=== PATIENT | female | born 1960 | race Caucasian/White ===

== ENCOUNTER 2017-07-28 14:00 | Emergency (ER) | payer MEDICAID, OTHER ==
[~2017-07-28] VITALS: Ht 165.1 cm; Wt 95.5 kg
[~2017-07-28 14:00] MED LIST: AMIT50TA3 PO; ASPI-1265 PO; BACL20TA PO; CITA20TA11 PO; DICL-194 PO; DOCU250C86 PO; FIBER PILL PO; GABA100C PO; HYDR-3965 PO; LACT1CAP67 PO; LISI-222 PO; LOP25T PO; METF500T PO; NATURAL LAXATIVE PO; OMEG500C PO; OXYB5TAB11 PO; PANT-47 PO; SITA100T11 PO
[2017-07-28] MEDS ORDERED: normal saline 1000ML IV soln IVB ONE ×2 (15:10)
[2017-07-28] MEDS ORDERED: ketorolac trometh. 30mg/ml inj. IV ONE (15:10)
[2017-07-28] MEDS ORDERED: morphine 4 MG/ML inj SYRINge IV ONE (15:10)
[2017-07-28] MEDS ORDERED: metoclopramide 5 mg/ml inj IV ONE (15:10)
[2017-07-28] MEDS ORDERED: diphenhydrAMINE 50 mg/ml inj IV ONE (15:10)
[2017-07-28] MEDS ORDERED: oxyCODONE/APAP 10/325mg tablet PO ONE (15:15)
[2017-07-28] MEDS ORDERED: diazepam 5mg tablet PO ONE (15:15)
[2017-07-28 15:32] LABS: BASOPHILS % (AUTO) 0.2 % (0-1); EOSINOPHILS % (AUTO) 0 % (0-6); HEMATOCRIT 37.5 % (35.0-45.0); HEMOGLOBIN 12.7 g/dl (12.0-16.0); LYMPHOCYTES # (AUTO) 1.3 X10'3 (1.1-4.8); LYMPHOCYTES % (AUTO) 14.6 % (21-51); MEAN CORPUSCULAR HGB CONC 33.8 % (33.0-36.5); MEAN CORPUSCULAR VOLUME 88.8 FL (78-98); MEAN PLATELET VOLUME 8.4 FL (7.4-10.4); MONOCYTES # (AUTO) 0.1 X10'3 (0-0.9); NEUTROPHILS # (AUTO) 7.5 X10'3 (1.8-7.7); NEUTROPHILS % (AUTO) 84.2 % (42-75); PLATELET COUNT 346 X10'3 (140-440); RED BLOOD COUNT 4.23 X10'6 (4.20-5.60); RED CELL DISTRIBUTION WIDTH 14.2 % (11.5-14.5); WHITE BLOOD COUNT 8.9 X10'3 (4.5-11.0)
[2017-07-28] MEDS ORDERED: HYDROcodone/acetaminophen 10/325mg tab PO ONE (15:35)
[2017-07-28 15:39] LABS: INR 1.1 INR
[2017-07-28 15:52] LABS: ALANINE AMINOTRANSFERASE 41 U/L (12-78); ALBUMIN 4.2 G/DL (3.4-5.0); ALBUMIN/GLOBULIN RATIO 0.9 (1.1-1.5); ALKALINE PHOSPHATASE 50 IU/L (46-116); ANION GAP 10 (8-16); ASPARTATE AMINO TRANSFERASE 31 U/L (10-37); BILIRUBIN,TOTAL 0.2 MG/DL (0.1-1.0); BLOOD UREA NITROGEN 20 MG/DL (7-18); BUN/CREATININE RATIO 17.7 (6.6-38.0); CALCIUM 9.5 MG/DL (8.5-10.1); CHLORIDE 106 MMOL/L (99-107); CREATININE 1.13 MG/DL (0.40-0.90); GLUCOSE 139 MG/DL (70-104); MAGNESIUM 1.8 MG/DL (1.5-2.4); POTASSIUM 4.4 MMOL/L (3.5-5.1); SODIUM 141 MMOL/L (135-145); TOTAL PROTEIN 8.7 G/DL (6.4-8.2); eGFR 50 ML/MIN
[2017-07-28 17:11] VITALS: BP 152/78
== END 2017-07-28 17:15 | disposition home or self-care (01) ==
LOC: ER 14:00
DX: R07.89 Other chest pain (principal); I25.10 Atherosclerotic heart disease of native coronary artery without angina pectoris; I10 Essential (primary) hypertension; I25.2 Old myocardial infarction; Z95.1 Presence of aortocoronary bypass graft; F17.200 Nicotine dependence, unspecified, uncomplicated; Z88.6 Allergy status to analgesic agent; Z79.82 Long term (current) use of aspirin
CPT/HCPCS: 36415; 71045; 80053; 83735; 83880; 84484; 85025; 85610; 99285

== ENCOUNTER 2018-07-21 05:30 | Day surgery (SDC) | payer MEDICAID ==
[2018-07-19 16:37] LABS: BASOPHILS # (AUTO) 0.1 X10'3 (0-0.2); BASOPHILS % (AUTO) 0.9 % (0-1); EOSINOPHILS # (AUTO) 0.3 X10'3 (0-0.9); EOSINOPHILS % (AUTO) 2.8 % (0-6); LYMPHOCYTES # (AUTO) 3.3 X10'3 (1.1-4.8); LYMPHOCYTES % (AUTO) 33.8 % (21-51); MEAN CORPUSCULAR HGB CONC 33.3 g/dL (33.0-36.5); MEAN PLATELET VOLUME 8.7 FL (7.4-10.4); MONOCYTES % (AUTO) 10.1 % (2-12); NEUTROPHILS # (AUTO) 5.1 X10'3 (1.8-7.7); NEUTROPHILS % (AUTO) 52.4 % (42-75); PRE OP HEMATOCRIT 37.2 % (35.0-45.0); PRE OP HEMOGLOBIN 12.4 g/dL (12.0-16.0); PRE OP PLATELET COUNT 344 X10'3 (140-440); RED BLOOD COUNT 4.14 X10'6 (4.20-5.60); RED CELL DISTRIBUTION WIDTH 13.7 % (11.5-14.5)
[2018-07-19 16:53] LABS: ALBUMIN 3.9 G/DL (3.4-5.0); ALKALINE PHOSPHATASE 45 IU/L (46-116); BLOOD UREA NITROGEN 17 MG/DL (7-18); BUN/CREATININE RATIO 13.8 (6.6-38.0); CALCIUM 9.5 MG/DL (8.5-10.1); CHLORIDE 106 MMOL/L (99-107); CREATININE 1.23 MG/DL (0.40-0.90); PRE OP ALT 38 U/L (30-65); PRE OP ANION GAP 8 (8-16); PRE OP AST 30 U/L (10-37); PRE OP BILIRUB, TOTAL 0.2 MG/DL (0.0-1.0); PRE OP GLUCOSE 102 MG/DL (70-104); PRE OP POTASSIUM 3.8 MMOL/L (3.4-5.1); PRE OP SODIUM 143 MMOL/L (135-145); TOTAL CARBON DIOXIDE 28.8 MMOL/L (24-32); TOTAL PROTEIN 7.7 G/DL (6.4-8.2); eGFR 45 ML/MIN
[2018-07-21] VITALS (10 sets, daily range): BP systolic 105–153; BP diastolic 57–84
[~2018-07-21] VITALS: Ht 162.6 cm; Wt 97.0 kg
[~2018-07-21 05:30] MED LIST changes: +ALBU8.5H8 INH; +ARIP5TAB4 PO; +ATOR40TA PO; +BIOT10005 PO; -CITA20TA11 PO; +CITA20TA28 PO; -DICL-194 PO; +DIPH25CA83 PO; +DOCUMENT DATE & TIME OF BETA-BLOCKER PO ONE; +FENO200C PO; +FERR325T28 PO; -FIBER PILL PO; +FLUT16SP2 BOTHNARES; -LISI-222 PO; +LOSA25TA96 PO; -METF500T PO; +MULT-1133 PO; -NATURAL LAXATIVE PO; +ONDA8TAB6 PO; +ORLI60CA2 PO; -PANT-47 PO; -SITA100T11 PO; +VANCOMYCIN INJ 1000 MG in NORMAL SALINE 250ml IV.SOLN IV ONE; +ceFAZolin 2gm in dextrose, iso 100 ML IV ONE; +famotidine 20mg tablet PO ONE; +ringers solution, lacted 1,000 ML IV SCH
[2018-07-21] MEDS ORDERED: LIDOcaine 1% (10mg/ml) 2ml vial ONE (06:57)
[2018-07-21] MEDS ORDERED: famotidine 20mg tablet PO ONE (07:40)
[2018-07-21] MEDS ORDERED: BUPIVAcaine/PF 2.5mg/ml (0.25%) 10ml vial ONE (10:46)
[2018-07-21] MEDS ORDERED: sevoflurane 250ml liquid IH ONE (11:46)
[2018-07-21] MEDS ORDERED: fentaNYL/PF 50MCG/1 ML 2ML syringe ONE (11:47)
[2018-07-21] MEDS ORDERED: MIDAZolam 5mg/5ml vial ONE (11:47)
[2018-07-21] MEDS ORDERED: propofol inj 20 ML IV ONE (11:47)
[2018-07-21] MEDS ORDERED: ROPIVAcaine 0.5% (5mg/ml) 30ml vial ONE (11:51)
[2018-07-21] MEDS ORDERED: ringers solution, lacted 1,000 ML IV SCH (12:52)
[2018-07-21] MEDS ORDERED: morphine 4 MG/ML inj SYRINge IV PRN ×2 (12:55)
[2018-07-21] MEDS ORDERED: ondansetron/PF 4mg/2ml inj IV PRN (12:55)
[2018-07-21] MEDS ORDERED: BUPIVAcaine/PF 2.5mg/ml (0.25%) 10ml vial IJ ONE (12:55)
[2018-07-21] MEDS ORDERED: meperidine/PF 25mg/ml syringe IV PRN ×3 (12:55)
[2018-07-21] MEDS ORDERED: proCHLORperazine 10 MG/2 ml inj IV PRN (12:55)
[2018-07-21] MEDS ORDERED: HYDROcodone/acetaminophen 10/325mg tab PO PRN (13:25)
--- NOTE | 2018-07-21 13:31 | NUR ---
Received from OR via , accompanied by Anesthesiologist DR HOWELL and report given by Anesthesiolgist. AWAKENS TO VOICE. VITALS STABLE. DRESSING DI. TERRY PAIN. LUE IN SIMPLE SLING. LT HAND WARM AND PINK.
--- NOTE | 2018-07-21 14:51 | NUR ---
AWAKE AND ORIENTED. VITALS STABLE. DRESSING DI. STATES MINIMAL DISCOMFORT. HOME WITH SPOUSE AT THIS TIME.
== END 2018-07-21 14:51 | disposition home or self-care (01) ==
LOC: PAS 05:30
PROVIDERS: ATTEND Orthopaedic Surgery
DX: M75.42 Impingement syndrome of left shoulder (principal); M19.012 Primary osteoarthritis, left shoulder; M11.212 Other chondrocalcinosis, left shoulder; M25.712 Osteophyte, left shoulder; M75.51 Bursitis of right shoulder; I10 Essential (primary) hypertension; I25.2 Old myocardial infarction; J45.909 Unspecified asthma, uncomplicated; M75.82 Other shoulder lesions, left shoulder; Z98.890 Other specified postprocedural states; Z79.899 Other long term (current) drug therapy; Z95.5 Presence of coronary angioplasty implant and graft; Z87.891 Personal history of nicotine dependence
CPT/HCPCS: 29824; 29826; 36415; 80053; 82948; 85025; A6449; J0690; J2175; J2250; J2405; J2704; J3010; J3370; J3490; J7120; A4565; A7000; J2795; J7030

== ENCOUNTER 2020-11-27 06:54 | Day surgery (SDC) | payer MEDICAID ==
[2020-11-19 11:30] LABS: BASOPHILS # (AUTO) 0.1 X10'3 (0-0.2); EOSINOPHILS # (AUTO) 0.1 X10'3 (0-0.9); EOSINOPHILS % (AUTO) 1.5 % (0-6); LYMPHOCYTES # (AUTO) 3.2 X10'3 (1.1-4.8); LYMPHOCYTES % (AUTO) 41.1 % (21-51); MEAN CORPUSCULAR HEMOGLOBIN 28.3 PG (27.0-31.0); MEAN CORPUSCULAR VOLUME 85.9 FL (78-98); MEAN PLATELET VOLUME 8.8 FL (7.4-10.4); MONOCYTES # (AUTO) 0.7 X10'3 (0-0.9); MONOCYTES % (AUTO) 9.3 % (2-12); NEUTROPHILS # (AUTO) 3.7 X10'3 (1.8-7.7); NEUTROPHILS % (AUTO) 47.1 % (42-75); PRE OP HEMOGLOBIN 12.9 g/dL (12.0-16.0); PRE OP PLATELET COUNT 301 X10'3 (140-440); RED BLOOD COUNT 4.54 X10'6 (4.20-5.60); RED CELL DISTRIBUTION WIDTH 14.3 % (11.5-14.5)
[2020-11-19 11:48] LABS: ALBUMIN 3.9 G/DL (3.4-5.0); ALKALINE PHOSPHATASE 39 IU/L (46-116); BLOOD UREA NITROGEN 18 MG/DL (7-18); BUN/CREATININE RATIO 16.2 (6.6-38.0); CALCIUM 8.9 MG/DL (8.5-10.1); CHLORIDE 106 MMOL/L (99-107); CREATININE 1.11 MG/DL (0.40-0.90); PRE OP ALT 29 U/L (30-65); PRE OP ANION GAP 5 (8-16); PRE OP AST 18 U/L (10-37); PRE OP BILIRUB, TOTAL 0.2 MG/DL (0.0-1.0); PRE OP GLUCOSE 86 MG/DL (70-104); PRE OP POTASSIUM 4.5 MMOL/L (3.4-5.1); PRE OP SODIUM 141 MMOL/L (135-145); TOTAL CARBON DIOXIDE 29.9 MMOL/L (24-32); TOTAL PROTEIN 7.9 G/DL (6.4-8.2); eGFR 50 ML/MIN
[~2020-11-27] VITALS: Ht 165.1 cm; Wt 108.0 kg
[2020-11-27] VITALS (8 sets, daily range): BP systolic 123–176; BP diastolic 56–75
[~2020-11-27 06:54] MED LIST changes: -AMIT50TA3 PO; +ARIP5TAB14 PO; -ARIP5TAB4 PO; -ATOR40TA PO; -DOCU250C86 PO; -DOCUMENT DATE & TIME OF BETA-BLOCKER PO ONE; -FERR325T28 PO; -GABA100C PO; -LACT1CAP67 PO; +LACT1CAP77 PO; -LOP25T PO; +LYR75C PO; +MULT-1085 PO; -MULT-1133 PO; -OXYB5TAB11 PO; +PANT-47 PO; +ROSU40TA PO; +TYL650S PO; -VANCOMYCIN INJ 1000 MG in NORMAL SALINE 250ml IV.SOLN IV ONE; +albuterol 2.5 MG/3 ML nebule NEB PRN; -ceFAZolin 2gm in dextrose, iso 100 ML IV ONE; +cefazolin/dext.iso 2gm/100ml IV ONE; +vancomycin 1,500 MG in NS 300ml IV soln IV ONE
[2020-11-27] MEDS ORDERED: triamcinolone acetonide 40mg/ml inj ONE (09:21)
[2020-11-27] MEDS ORDERED: BUPIVAcaine/PF 2.5 mg/ml (0.25%) 30ml vial ONE (09:21)
[2020-11-27] MEDS ORDERED: ondansetron/PF 4mg/2ml inj IV STA (09:35)
[2020-11-27] MEDS ORDERED: sevoflurane 250ml liquid IH ONE (09:55)
[2020-11-27] MEDS ORDERED: fentaNYL/PF 50MCG/1 ML 2ML syringe ONE (09:59)
[2020-11-27] MEDS ORDERED: midazolam 1 mg/ML 2ml injection ONE (10:00)
[2020-11-27] MEDS ORDERED: LIDOcaine 2% (20mg/ml) 5ml vial ONE (10:06)
[2020-11-27] MEDS ORDERED: propofol inj 20 ML IV ONE (10:06)
[2020-11-27] MEDS ORDERED: dexamethasone sod phosphate 4mg/ml inj. ONE (10:20)
[2020-11-27] MEDS ORDERED: ondansetron/PF 4mg/2ml inj ONE (10:20)
--- NOTE | 2020-11-27 11:16 | NUR ---
Received from OR via , accompanied by Anesthesiologist DR TAI and report given by Anesthesiolgist. AWAKENS TO VOICE. VITALS STABLE. DRESSING DI. TERRY PAIN.
--- NOTE | 2020-11-27 12:26 | NUR ---
AWAKE AND ORIENTED. VITALS STABLE. DRESSING DI. TERRY PAIN. HOME WITH HER SPOUSE AT THIS TIME.
== END 2020-11-27 12:26 | disposition home or self-care (01) ==
LOC: PAS 06:54
PROVIDERS: ATTEND Orthopaedic Surgery
DX: S83.231A Complex tear of medial meniscus, current injury, right knee, initial encounter (principal); S83.281A Other tear of lateral meniscus, current injury, right knee, initial encounter; M94.261 Chondromalacia, right knee; M17.0 Bilateral primary osteoarthritis of knee; I25.10 Atherosclerotic heart disease of native coronary artery without angina pectoris; F41.9 Anxiety disorder, unspecified; J45.909 Unspecified asthma, uncomplicated; G89.4 Chronic pain syndrome; F32.9 Major depressive disorder, single episode, unspecified; I10 Essential (primary) hypertension; E78.5 Hyperlipidemia, unspecified; E66.01 Morbid (severe) obesity due to excess calories; Z68.39 Body mass index [BMI] 39.0-39.9, adult; M19.012 Primary osteoarthritis, left shoulder; E11.51 Type 2 diabetes mellitus with diabetic peripheral angiopathy without gangrene; I25.2 Old myocardial infarction; G47.33 Obstructive sleep apnea (adult) (pediatric); K21.9 Gastro-esophageal reflux disease without esophagitis; Z88.8 Allergy status to other drugs, medicaments and biological substances; Z79.899 Other long term (current) drug therapy; Z79.82 Long term (current) use of aspirin; Z88.5 Allergy status to narcotic agent; Z86.73 Personal history of transient ischemic attack (TIA), and cerebral infarction without residual deficits; Z98.890 Other specified postprocedural states; Z90.49 Acquired absence of other specified parts of digestive tract; Z87.891 Personal history of nicotine dependence; X58.XXXA Exposure to other specified factors, initial encounter; Y93.89 Activity, other specified; Y92.89 Other specified places as the place of occurrence of the external cause; Y99.8 Other external cause status
CPT/HCPCS: 29873; 29879; 29880; 36415; 71046; 80053; 82948; 85025; 93005; J1100; J2001; J2250; J2405; J2704; J3010; J3301; J3370; J3490; J7040; Z7506; Z7508; Z7512; A4215; A4618; A6250; A6449; A7000; J7120

== ENCOUNTER 2021-01-06 12:29 | Day surgery (SDC) | payer MEDICAID ==
[2020-12-30 09:36] LABS: BASOPHILS # (AUTO) 0.1 X10'3 (0-0.2); BASOPHILS % (AUTO) 0.8 % (0-1); EOSINOPHILS # (AUTO) 0.1 X10'3 (0-0.9); EOSINOPHILS % (AUTO) 1.7 % (0-6); HEMATOCRIT 38.5 % (35.0-45.0); HEMOGLOBIN 12.5 g/dl (12.0-16.0); LYMPHOCYTES # (AUTO) 3.2 X10'3 (1.1-4.8); LYMPHOCYTES % (AUTO) 38.4 % (21-51); MEAN CORPUSCULAR HEMOGLOBIN 28.4 PG (27.0-31.0); MEAN CORPUSCULAR HGB CONC 32.4 g/dL (33.0-36.5); MEAN CORPUSCULAR VOLUME 87.6 FL (78-98); MEAN PLATELET VOLUME 8.8 FL (7.4-10.4); MONOCYTES # (AUTO) 0.8 X10'3 (0-0.9); NEUTROPHILS # (AUTO) 4.2 X10'3 (1.8-7.7); NEUTROPHILS % (AUTO) 50.1 % (42-75); PLATELET COUNT 320 X10'3 (140-440); RED BLOOD COUNT 4.39 X10'6 (4.20-5.60); RED CELL DISTRIBUTION WIDTH 14.8 % (11.5-14.5); WHITE BLOOD COUNT 8.3 X10'3 (4.5-11.0)
[2020-12-30 09:45] LABS: ALBUMIN 3.8 G/DL (3.4-5.0); ANION GAP 9 (8-16); BLOOD UREA NITROGEN 15 MG/DL (7-18); BUN/CREATININE RATIO 15.2 (6.6-38.0); CALCIUM 8.7 MG/DL (8.5-10.1); CHLORIDE 108 MMOL/L (99-107); CREATININE 0.99 MG/DL (0.40-0.90); GLUCOSE 93 MG/DL (70-104); POTASSIUM 4.1 MMOL/L (3.5-5.1); SODIUM 143 MMOL/L (135-145); TOTAL CARBON DIOXIDE 26.4 MMOL/L (24-32); eGFR 58 ML/MIN
[2020-12-30 09:48] LABS: PARTIAL THROMBOPLASTIN TIME 24 SECONDS (22-32)
[~2021-01-06] VITALS: Ht 165.1 cm; Wt 109.3 kg
[2021-01-06] VITALS (9 sets, daily range): BP systolic 91–150; BP diastolic 48–69
[~2021-01-06 12:29] MED LIST changes: +ALBU8.5H17 INH; -ALBU8.5H8 INH; -albuterol 2.5 MG/3 ML nebule NEB PRN; -cefazolin/dext.iso 2gm/100ml IV ONE; -famotidine 20mg tablet PO ONE; -ringers solution, lacted 1,000 ML IV SCH; -vancomycin 1,500 MG in NS 300ml IV soln IV ONE
[2021-01-06] MEDS ORDERED: diphenhydrAMINE 25mg capsule PO PRN (12:55)
[2021-01-06] MEDS ORDERED: normal saline 1,000 ML IV SCH (12:55)
[2021-01-06] MEDS ORDERED: LORazepam 0.5 MG tablet PO PRN (12:55)
[2021-01-06] MEDS ORDERED: DIPH-1055 PO (14:47)
[2021-01-06] MEDS ORDERED: midazolam 1 mg/ML 2ml injection ONE (15:41)
[2021-01-06] MEDS ORDERED: fentaNYL/PF 50MCG/1 ML 2ML syringe ONE (15:41)
[2021-01-06] MEDS ORDERED: heparin 1,000unit/ml 10ml vial 10 ML ONE (15:41)
[2021-01-06] MEDS ORDERED: LIDOcaine 1% (10mg/ml)w/preservative injection 20ml MDV ONE ×2 (15:41→16:12)
[2021-01-06] MEDS ORDERED: heparin 1,000 UNITS/NS 500ml 500 ML ONE (15:41)
[2021-01-06] MEDS ORDERED: HYDROmorphone 1 mg/ml syringe ONE (15:59)
[2021-01-06] MEDS ORDERED: iohexol 350MG/ML 100ml bottle IV ONE (16:06)
[2021-01-06] MEDS ORDERED: clopidogrel 300mg tablet ONE (16:25)
[2021-01-06] MEDS ORDERED: ondansetron/PF 4mg/2ml inj IV PRN (17:25)
[2021-01-06] MEDS ORDERED: HYDROcodone/acetaminophen 10/325mg tab PO PRN (17:30)
[2021-01-06] MEDS ORDERED: HYDROcodone/acetaminophen 5mg/325mg tablet PO PRN (17:30)
[2021-01-06] MEDS ORDERED: OXAZEpam 15mg capsule PO PRN (17:30)
[2021-01-06] MEDS ORDERED: proCHLORperazine 10 MG/2 ml inj IV PRN (17:30)
== END 2021-01-06 19:10 | disposition home or self-care (01) ==
LOC: SSTAY O 12:29
PROVIDERS: ATTEND Internal Medicine Interventional Cardiology
DX: I70.211 Atherosclerosis of native arteries of extremities with intermittent claudication, right leg (principal); I25.10 Atherosclerotic heart disease of native coronary artery without angina pectoris; G47.33 Obstructive sleep apnea (adult) (pediatric); J45.909 Unspecified asthma, uncomplicated; F31.9 Bipolar disorder, unspecified; G89.29 Other chronic pain; D64.9 Anemia, unspecified; I65.29 Occlusion and stenosis of unspecified carotid artery; Z86.73 Personal history of transient ischemic attack (TIA), and cerebral infarction without residual deficits; Z79.82 Long term (current) use of aspirin; Z79.01 Long term (current) use of anticoagulants; Z79.899 Other long term (current) drug therapy; Z88.5 Allergy status to narcotic agent
CPT/HCPCS: 36415; 37221; 75625; 75710; 80048; 82948; 85025; 85610; 85730; 93005; 99152; C1760; C1769; C1876; C1894; J1170; J1644; J2001; J2250; J3010; Q9967; 99153; A6258

== ENCOUNTER 2022-07-12 07:02 | Inpatient (IN) | payer MEDICAID ==
[2022-07-07 10:48] LABS: BASOPHILS % (AUTO) 0.6 % (0-1); EOSINOPHILS # (AUTO) 0.1 X10'3 (0-0.9); EOSINOPHILS % (AUTO) 1.3 % (0-6); LYMPHOCYTES # (AUTO) 3.1 X10'3 (1.1-4.8); LYMPHOCYTES % (AUTO) 42.6 % (21-51); MEAN CORPUSCULAR HEMOGLOBIN 28.8 PG (27.0-31.0); MEAN CORPUSCULAR HGB CONC 32.3 g/dL (33.0-36.5); MEAN PLATELET VOLUME 8.8 FL (7.4-10.4); MONOCYTES # (AUTO) 0.6 X10'3 (0-0.9); NEUTROPHILS # (AUTO) 3.5 X10'3 (1.8-7.7); NEUTROPHILS % (AUTO) 47.5 % (42-75); PRE OP HEMATOCRIT 37.3 % (35.0-45.0); PRE OP HEMOGLOBIN 12.1 g/dL (12.0-16.0); PRE OP PLATELET COUNT 319 X10'3 (140-440); RED BLOOD COUNT 4.19 X10'6 (4.20-5.60); RED CELL DISTRIBUTION WIDTH 14.3 % (11.5-14.5)
[2022-07-07 10:57] LABS: ALBUMIN 3.8 G/DL (3.4-5.0); ALKALINE PHOSPHATASE 38 IU/L (46-116); BLOOD UREA NITROGEN 16 MG/DL (7-18); BUN/CREATININE RATIO 17.2 (6.6-38.0); CALCIUM 8.9 MG/DL (8.5-10.1); CHLORIDE 107 MMOL/L (99-107); CREATININE 0.93 MG/DL (0.40-0.90); PRE OP ALT 37 U/L (30-65); PRE OP ANION GAP 8 (8-16); PRE OP AST 36 U/L (10-37); PRE OP BILIRUB, TOTAL 0.2 MG/DL (0.0-1.0); PRE OP GLUCOSE 87 MG/DL (70-104); PRE OP POTASSIUM 4.2 MMOL/L (3.4-5.1); PRE OP SODIUM 141 MMOL/L (135-145); TOTAL CARBON DIOXIDE 25.6 MMOL/L (24-32); TOTAL PROTEIN 7.7 G/DL (6.4-8.2); eGFR 62 ML/MIN
[~2022-07-12] VITALS: Ht 165.1 cm; Wt 99.8 kg
[2022-07-12] VITALS (40 sets, daily range): BP systolic 123–159; BP diastolic 48–75
[~2022-07-12 07:02] MED LIST changes: +ACET650T24 PO; -ASPI-1265 PO; +ASPI-611 PO; +DIPH-1055 PO; -DIPH25CA83 PO; -FENO200C PO; +FENO200C22 PO; -FLUT16SP2 BOTHNARES; +FLUT16SP26 BOTHNARES; -ORLI60CA2 PO; +POLY119P2 PO; -ROSU40TA PO; +ROSU40TA22 PO; +SEMA1PEN3 SQ; -TYL650S PO; +cefazolin 2gm/D5W 100mL 100 ML IV ONE; +famotidine 20mg tablet PO ONE; +ringers solution, lacted 1,000 ML IV SCH; +tranexamic acid 650mg tablet PO ONE; +vancomycin 1,500 MG in NS 300ml IV soln IV ONE
--- NOTE | 2022-07-12 07:30 | NUR ---
PT ARRIVED TO [facility] FOR R TKA. PT COMPLETED 5 DAYS OF HIBICLENS SHOWERS AND NASAL OINTMENT. SHE ALSO WATCHED THE EDUCATION VIDEO FOR A TOTAL JOINT SURGERY. PEDAL PULSES ARE STRONG AND MARKED. CSM W/N/L. Addendum: 07/12/22 at 1005 by Chanda Olivier RN Amended: Links added.
[2022-07-12] MEDS ORDERED: ROPIVAcaine 0.5% (5mg/ml) 30ml vial ONE (10:03)
[2022-07-12] MEDS ORDERED: ketorolac trometh. 30mg/ml inj. ONE (10:04)
[2022-07-12] MEDS ORDERED: tetracaine 1% (10mg/ml) pres. free inj. ONE (10:16)
[2022-07-12] MEDS ORDERED: MIDAZolam 1mg/ml 10ml vial ONE (10:17)
[2022-07-12] MEDS ORDERED: fentaNYL/PF 50MCG/1 ML 2ML syringe ONE (10:18)
[2022-07-12] MEDS ORDERED: dexamethasone sod phosphate 10mg/ml inj ONE (10:19)
[2022-07-12] MEDS ORDERED: ondansetron/PF 4mg/2ml inj ONE (11:01)
[2022-07-12] MEDS ORDERED: metoclopramide 5 mg/ml inj ONE (11:01)
[2022-07-12] MEDS ORDERED: ondansetron/PF 4mg/2ml inj IV PRN (11:15)
[2022-07-12] MEDS ORDERED: fentaNYL/PF 50MCG/1 ML 2ML syringe IV PRN ×2 (11:15)
[2022-07-12] MEDS ORDERED: morphine 2 MG/ML inj. syringe IV PRN (11:15)
[2022-07-12] MEDS ORDERED: labetalol 20mg/4ml (5mg/ml) syringe IV PRN (11:15)
[2022-07-12] MEDS ORDERED: morphine 4 MG/ML inj SYRINge IV PRN (11:15)
[2022-07-12] MEDS ORDERED: hydrALAZINE 20mg/ml inj. IV PRN (11:15)
[2022-07-12] MEDS ORDERED: ringers solution, lacted 1,000 ML IV SCH (11:15)
[2022-07-12] MEDS ORDERED: gelatin sponge, absorbable (Gelfoam 100) sponge TP ONE (12:27)
[2022-07-12] MEDS ORDERED: Thrombin (Bovine) 5,000 unit vial TP ONE (12:28)
[2022-07-12] MEDS ORDERED: naloxone 0.4 mg/ml inj IV PRN (13:05)
[2022-07-12] MEDS: potassium cl 20mEq in 1/2 NS 1,000 ML IV SCH (13:05)
[2022-07-12] MEDS ORDERED: HYDROcodone/acetaminophen 10/325mg tab PO PRN ×2 (13:05)
[2022-07-12] MEDS ORDERED: HYDROmorphone 1 mg/ml syringe IV PRN (13:05)
[2022-07-12] MEDS ORDERED: non-formulary drug (Ondansetron Hcl (Zofran) 1 TAB) PO PRN (13:05)
[2022-07-12] MEDS ORDERED: diphenhydrAMINE 25mg capsule PO PRN ×2 (13:05)
[2022-07-12] MEDS ORDERED: acetaminophen 325mg tablet PO PRN (13:05)
[2022-07-12] MEDS ORDERED: magnesium hydroxide 30ml (MOM) UD suspension PO PRN (13:05)
[2022-07-12] MEDS ORDERED: fluticasone nasal spray 16GM bottle NS PRN (13:05)
[2022-07-12] MEDS ORDERED: albuterol 2.5 MG/3 ML nebule NEB PRN (13:05)
[2022-07-12] MEDS ORDERED: bisacodyl 10mg suppository rectal RC PRN (13:05)
--- NOTE | 2022-07-12 13:09 | NUR ---
Received from OR via BED, accompanied by Anesthesiologist DAVID MENDEZ and report given by Anesthesiolgist AND OR NURSE. PT HAS 20G IV TO RIGHT HAND RUNNING LR. PT ARRIVED AWAKE ON 10 L OF 02. DENIES PAIN OR NAUSEA. VSS WITH HR IN IN HIGH 40S TO LOW 50S, MD AWARE. RIGHT LEG WRAPPED IN KEDAR BANDAGE C/D/I. LEG ELEVATED AND CPM TO BE APPLIED. WILL CONTINUE TO MONITOR. Addendum: 07/12/22 at 1329 by Chanda Olivier RN Amended: Links added.
--- NOTE | 2022-07-12 14:00 | NUR ---
INCORRECT SIZE DME DELIVERED TO PT BEDSIDE. CALLED [employer]ERIALS TO HAVE CORRECT SIZE TO BE DELIVERED. PHYSICAL THERAPY SAID THEY HAD TO LEAVE DUE TO MEETING AND SAID THEY WOULD NOT BE ABLE TO RETURN UNTIL AFTER 3.
--- NOTE | 2022-07-12 14:51 | NUR ---
PAGED PT TO NOTIFY THAT CORRECT DME WAS DELIVERED. NO ANSWER FROM PT. NOTIFIED DR. SWANN THAT CPM WAS STILL NOT INITIATED, HE SAID TO JUST KEEP HER ELEVATED. PT HAS BEEN ON BLUE WEDGE SINCE ARRIVING TO PACU.
--- NOTE | 2022-07-12 15:02 | NUR ---
PT AT BEDSIDE TO APPLY CPM.
--- NOTE | 2022-07-12 15:59 | NUR ---
GAVE BEDSIDE REPORT TO SAGRARIO Sierra RN.
--- NOTE | 2022-07-12 16:08 | NUR ---
RECEIVED REPORT FROM MANUEL THAO AND ACCEPTED CARE OF PT.
[2022-07-12] MEDS: acetaminophen 325mg tablet PO SCH ×2 (16:27→20:30)
[2022-07-12] MEDS: oxyCODONE IR 5mg (immed. release) tablet PO PRN (17:00)
--- NOTE | 2022-07-12 19:09 | NUR ---
Report called to receiving nurse ANASTACIO THAO. Transferred via HOSPITAL BED TO ROOM 360A. PT BelongingsTAKEN TO ROOM 360B WITH PT. BED IN LOW LOCKED POSITION WITH CALL LIGHT IN REACH. PT CHART TAKEN TO NURSES STATION. PT GIVEN MEAL TRAY AND ICE WATER. Special Issues communicated to receiving nurse. Addendum: 07/12/22 at 1948 by Odette Hylton RN RN Amended: Links added.
[2022-07-12] MEDS ORDERED: non-formulary drug (Acetaminophen 2 TAB) PO SCH (20:00)
[2022-07-12] MEDS: OMEGA-3/DHA/EPA/FISH OIL 1 EACH CAPSULE.DR PO SCH (20:30)
[2022-07-12] MEDS: pantoprazole 40mg Tablet.DR PO SCH (20:30)
[2022-07-12] MEDS: ondansetron/PF 4mg/2ml inj IV PRN (20:54)
[2022-07-12] MEDS: diphenhydrAMINE 25mg capsule PO SCH (21:00)
[2022-07-12] MEDS: multivitamins, therapeutics tablet PO SCH (21:00)
[2022-07-12] MEDS: pregabalin 75mg capsule PO SCH (21:00)
[2022-07-12] MEDS: aripiprazole 5mg tablet PO SCH (21:00)
[2022-07-12] MEDS: losartan 25mg tablet PO SCH (21:00)
[2022-07-12] MEDS: polyethylene glycol 3350 17gm powd pack PO SCH (21:00)
[2022-07-12] MEDS: atorvastatin 20mg tablet PO SCH (21:00)
[2022-07-12] MEDS: sennosides 8.6mg tablet PO SCH (21:00)
[2022-07-12] MEDS: aspirin 81mg, enteric-coated 1 TAB TABLET.DR PO SCH (21:00)
[2022-07-12] MEDS: lactobacillus rhamnosus 10,000 MMU CELLS/CAPSULE PO SCH (21:30)
[2022-07-12] MEDS: HYDROmorphone inj. 0.5 MG/0.5 ML DISP.SYRIN IV PRN (22:16)
[2022-07-13] MEDS: oxyCODONE IR 5mg (immed. release) tablet PO PRN ×5 (00:06→20:19)
[2022-07-13] MEDS: potassium cl 20mEq in 1/2 NS 1,000 ML IV SCH ×4 (00:12→20:11)
[2022-07-13] MEDS: acetaminophen 325mg tablet PO SCH ×4 (02:00→20:14)
[2022-07-13] MEDS: HYDROmorphone inj. 0.5 MG/0.5 ML DISP.SYRIN IV PRN ×5 (04:02→22:34)
[2022-07-13 05:06] LABS: BASOPHILS # (AUTO) 0.1 X10'3 (0-0.2); BASOPHILS % (AUTO) 0.6 % (0-1); EOSINOPHILS % (AUTO) 0.1 % (0-6); HEMATOCRIT 30.1 % (35.0-45.0); LYMPHOCYTES # (AUTO) 2.5 X10'3 (1.1-4.8); LYMPHOCYTES % (AUTO) 21.8 % (21-51); MEAN CORPUSCULAR HEMOGLOBIN 29.4 PG (27.0-31.0); MEAN CORPUSCULAR HGB CONC 33.3 g/dL (33.0-36.5); MEAN CORPUSCULAR VOLUME 88.5 FL (78-98); MEAN PLATELET VOLUME 8.7 FL (7.4-10.4); MONOCYTES # (AUTO) 1.3 X10'3 (0-0.9); MONOCYTES % (AUTO) 11.1 % (2-12); NEUTROPHILS # (AUTO) 7.8 X10'3 (1.8-7.7); NEUTROPHILS % (AUTO) 66.4 % (42-75); PLATELET COUNT 277 X10'3 (140-440); RED CELL DISTRIBUTION WIDTH 13.7 % (11.5-14.5); WHITE BLOOD COUNT 11.7 X10'3 (4.5-11.0)
[2022-07-13 05:21] LABS: ANION GAP 8 (8-16); CHLORIDE 105 MMOL/L (99-107); POTASSIUM 3.9 MMOL/L (3.5-5.1); SODIUM 140 MMOL/L (135-145); TOTAL CARBON DIOXIDE 27.4 MMOL/L (24-32)
[2022-07-13] MEDS: baclofen 10mg tablet PO PRN ×2 (05:58→20:16)
--- NOTE | 2022-07-13 06:37 | NUR ---
Problems reprioritized. Patient report given, questions answered & plan of care reviewed with JURGEN THAO.
[2022-07-13 07:00] VITALS: BP 164/66
[2022-07-13] MEDS ORDERED: non-formulary drug (Biotin 1 CAP) PO SCH (08:00)
[2022-07-13] MEDS: pantoprazole 40mg Tablet.DR PO SCH ×2 (08:37→20:15)
[2022-07-13] MEDS: OMEGA-3/DHA/EPA/FISH OIL 1 EACH CAPSULE.DR PO SCH ×2 (08:37→20:13)
[2022-07-13] MEDS: lactobacillus rhamnosus 10,000 MMU CELLS/CAPSULE PO SCH ×2 (08:38→20:16)
[2022-07-13] MEDS: fenofibrate 145mg tablet PO SCH (08:38)
[2022-07-13] MEDS: citalopram 20mg tablet PO SCH (08:39)
[2022-07-13] MEDS: ondansetron/PF 4mg/2ml inj IV PRN ×2 (08:39→16:54)
--- NOTE | 2022-07-13 10:51 | NUR ---
Joint surgery consult: Pt s/p R knee surgery this admit hx T2DM though A1C 6.0% per EMR. Pt seen by RD for written/verbal high protein diet ed w/ RD contact information provided. Pt reports N/V since last night requests soup/crackers w/ juice and associate financial analyst sides [facility] today; dietary notified. RD encouraged pt to contact dietitian's office if further nutrition questions/concerns. Addendum: 07/13/22 at [address] Amended: Links added.
[2022-07-13 13:20] VITALS: BP 179/77
[2022-07-13 16:35] VITALS: BP 185/69
[2022-07-13] MEDS: aripiprazole 5mg tablet PO SCH (20:14)
[2022-07-13] MEDS: sennosides 8.6mg tablet PO SCH (20:15)
[2022-07-13] MEDS: multivitamins, therapeutics tablet PO SCH (20:15)
[2022-07-13] MEDS: atorvastatin 20mg tablet PO SCH (20:15)
[2022-07-13] MEDS: pregabalin 75mg capsule PO SCH (20:16)
[2022-07-13] MEDS: aspirin 81mg, enteric-coated 1 TAB TABLET.DR PO SCH (20:18)
[2022-07-13] MEDS: losartan 25mg tablet PO SCH (20:18)
[2022-07-13] MEDS: diphenhydrAMINE 25mg capsule PO SCH (20:19)
[2022-07-13] MEDS: polyethylene glycol 3350 17gm powd pack PO SCH (20:24)
[2022-07-13 22:00] VITALS: BP 162/59
[2022-07-14] MEDS: oxyCODONE IR 5mg (immed. release) tablet PO PRN ×4 (02:26→20:45)
[2022-07-14] MEDS: ondansetron/PF 4mg/2ml inj IV PRN ×2 (02:26→17:59)
[2022-07-14] MEDS: acetaminophen 325mg tablet PO SCH ×2 (02:36→08:32)
[2022-07-14] MEDS: potassium cl 20mEq in 1/2 NS 1,000 ML IV SCH (03:15)
[2022-07-14] MEDS: HYDROmorphone inj. 0.5 MG/0.5 ML DISP.SYRIN IV PRN ×2 (04:59→11:23)
[2022-07-14 05:00] LABS: BASOPHILS % (AUTO) 0.1 % (0-1); EOSINOPHILS % (AUTO) 0 % (0-6); HEMATOCRIT 26.2 % (35.0-45.0); HEMOGLOBIN 8.7 g/dl (12.0-16.0); LYMPHOCYTES # (AUTO) 2.3 X10'3 (1.1-4.8); LYMPHOCYTES % (AUTO) 17.8 % (21-51); MEAN CORPUSCULAR HGB CONC 33.1 g/dL (33.0-36.5); MEAN CORPUSCULAR VOLUME 87.6 FL (78-98); MEAN PLATELET VOLUME 8.7 FL (7.4-10.4); MONOCYTES # (AUTO) 2.2 X10'3 (0-0.9); MONOCYTES % (AUTO) 17.2 % (2-12); NEUTROPHILS # (AUTO) 8.4 X10'3 (1.8-7.7); NEUTROPHILS % (AUTO) 64.9 % (42-75); PLATELET COUNT 254 X10'3 (140-440); RED BLOOD COUNT 2.99 X10'6 (4.20-5.60); RED CELL DISTRIBUTION WIDTH 13.8 % (11.5-14.5)
[2022-07-14 05:30] LABS: TOTAL CELLS COUNTED 100
[2022-07-14 05:31] LABS: ANISOCYTOSIS FEW; PLATELET ESTIMATE NORMAL; SMUDGE CELLS FEW; SPHEROCYTES FEW
[2022-07-14 06:00] VITALS: BP 147/58
--- NOTE | 2022-07-14 06:35 | NUR ---
Problems reprioritized. Patient report given, questions answered & plan of care reviewed with YAKOV THAO.
--- NOTE | 2022-07-14 06:45 | NUR ---
Patient in room [facility]. I have received report from Cheyanne Edward RN and had the opportunity to ask questions and assume patient care.
[2022-07-14] MEDS: OMEGA-3/DHA/EPA/FISH OIL 1 EACH CAPSULE.DR PO SCH ×2 (07:51→20:00)
[2022-07-14] MEDS: fenofibrate 145mg tablet PO SCH (07:51)
[2022-07-14] MEDS: lactobacillus rhamnosus 10,000 MMU CELLS/CAPSULE PO SCH ×2 (08:26→20:47)
[2022-07-14] MEDS: citalopram 20mg tablet PO SCH (08:26)
[2022-07-14] MEDS: pantoprazole 40mg Tablet.DR PO SCH ×2 (08:26→20:46)
[2022-07-14 11:00] VITALS: BP 147/64
[2022-07-14] MEDS ORDERED: acetaminophen 325mg tablet PO PRN (13:05)
[2022-07-14] MEDS ORDERED: SEMAGLUTIDE 1 MG SQ SCH (13:05)
--- NOTE | 2022-07-14 18:59 | NUR ---
Problems reprioritized. Patient report given, questions answered & plan of care reviewed with Abbie THAO Traveler. .
[2022-07-14] MEDS: diphenhydrAMINE 25mg capsule PO SCH (20:46)
[2022-07-14] MEDS: pregabalin 75mg capsule PO SCH (20:46)
[2022-07-14] MEDS: sennosides 8.6mg tablet PO SCH (20:46)
[2022-07-14] MEDS: multivitamins, therapeutics tablet PO SCH (20:47)
[2022-07-14] MEDS: atorvastatin 20mg tablet PO SCH (20:47)
[2022-07-14] MEDS: polyethylene glycol 3350 17gm powd pack PO SCH (20:56)
[2022-07-14] MEDS: losartan 25mg tablet PO SCH (20:56)
[2022-07-14] MEDS: aspirin 81mg, enteric-coated 1 TAB TABLET.DR PO SCH (21:00)
[2022-07-14] MEDS: aripiprazole 5mg tablet PO SCH (22:43)
[2022-07-15] MEDS: ondansetron/PF 4mg/2ml inj IV PRN ×2 (01:07→10:40)
[2022-07-15] MEDS: oxyCODONE IR 5mg (immed. release) tablet PO PRN ×5 (01:07→17:46)
[2022-07-15 06:00] VITALS: BP 146/59
--- NOTE | 2022-07-15 06:02 | NUR ---
pts ctheter was removed this morning at 0516. NO signs of infection or injury noted. yet to produce urine.
--- NOTE | 2022-07-15 06:16 | NUR ---
report given to Jim THAO
--- NOTE | 2022-07-15 07:01 | NUR ---
Patient in room [facility]. I have received report from Abbie THAO Traveler and had the opportunity to ask questions and assume patient care.
[2022-07-15 07:05] LABS: BASOPHILS % (AUTO) 0.2 % (0-1); EOSINOPHILS % (AUTO) 0.1 % (0-6); HEMATOCRIT 25.2 % (35.0-45.0); HEMOGLOBIN 8.2 g/dl (12.0-16.0); LYMPHOCYTES # (AUTO) 2.7 X10'3 (1.1-4.8); LYMPHOCYTES % (AUTO) 20.2 % (21-51); MEAN CORPUSCULAR HEMOGLOBIN 28.8 PG (27.0-31.0); MEAN CORPUSCULAR HGB CONC 32.7 g/dL (33.0-36.5); MEAN CORPUSCULAR VOLUME 88.3 FL (78-98); MEAN PLATELET VOLUME 8.5 FL (7.4-10.4); MONOCYTES # (AUTO) 1.5 X10'3 (0-0.9); MONOCYTES % (AUTO) 11.1 % (2-12); NEUTROPHILS # (AUTO) 9.3 X10'3 (1.8-7.7); NEUTROPHILS % (AUTO) 68.4 % (42-75); PLATELET COUNT 255 X10'3 (140-440); RED BLOOD COUNT 2.86 X10'6 (4.20-5.60); RED CELL DISTRIBUTION WIDTH 13.8 % (11.5-14.5); WHITE BLOOD COUNT 13.6 X10'3 (4.5-11.0)
[2022-07-15] MEDS: fenofibrate 145mg tablet PO SCH (08:00)
[2022-07-15] MEDS: OMEGA-3/DHA/EPA/FISH OIL 1 EACH CAPSULE.DR PO SCH (08:00)
[2022-07-15] MEDS: lactobacillus rhamnosus 10,000 MMU CELLS/CAPSULE PO SCH (09:11)
[2022-07-15] MEDS: citalopram 20mg tablet PO SCH (09:12)
[2022-07-15] MEDS: pantoprazole 40mg Tablet.DR PO SCH (09:12)
[2022-07-15 10:00] VITALS: BP 152/72
[2022-07-15] MEDS ORDERED: ARIPIPRAZOLE 15 MG TABLET PO SCH (10:37)
[2022-07-15 11:28] VITALS: BP 152/72
[2022-07-15] MEDS: baclofen 10mg tablet PO PRN (12:18)
--- NOTE | 2022-07-15 19:12 | NUR ---
Pt Dc to home with . Pt is A & O x4 and in no apparent distress. Pt and verbalize understanding of all DC orders and is able to teach back on how to change dressing. Pt received printout and hand out of directions as well as PT precautions and Do's and Don'ts. Pt refused dinner and was ready to go. Pt was wheeled to the front where took her home. Extra island dressing for wound care was giving.
== END 2022-07-15 19:10 | disposition home or self-care (01) | DRG 326 ==
LOC: PAS IN 07:02 → SUR 3N 20:32
PROVIDERS: ADMIT Orthopaedic Surgery; ATTEND Orthopaedic Surgery
PROC: 8E0YXBZ Computer Assisted Procedure of Lower Extremity (ICD-10-PCS; 2022-07-12)
PROC: 8E0Y0CZ Robotic Assisted Procedure of Lower Extremity, Open Approach (ICD-10-PCS; 2022-07-12)
PROC: 3E0T3BZ Introduction of Anesthetic Agent into Peripheral Nerves and Plexi, Percutaneous Approach (ICD-10-PCS; 2022-07-12)
PROC: 3E0T33Z Introduction of Anti-inflammatory into Peripheral Nerves and Plexi, Percutaneous Approach (ICD-10-PCS; 2022-07-12)
PROC: 0SRC0J9 Replacement of Right Knee Joint with Synthetic Substitute, Cemented, Open Approach (ICD-10-PCS; principal; 2022-07-12 10:19)
DX: M17.11 Unilateral primary osteoarthritis, right knee (principal)
CPT/HCPCS: 36415; 71046; 80051; 80053; 82948; 83036; 85007; 85025; 87081; 94760; 97110; 97116; 97161; 97530; A4215; A6253; A6258; A6449; A7000; C1713; C1758; C1776; G0378; J0690; J1100; J1170; J1885; J2250; J2270; J2405; J2765; J2795; J3010; J3370; J3480; J3490; J7120; Q0163

== ENCOUNTER 2023-02-08 13:53 | Day surgery (SDC) | payer MEDICAID ==
[2023-02-04 16:39] LABS: BASOPHILS # (AUTO) 0.1 X10'3 (0-0.2); BASOPHILS % (AUTO) 0.6 % (0-1); EOSINOPHILS # (AUTO) 0.1 X10'3 (0-0.9); EOSINOPHILS % (AUTO) 1.1 % (0-6); HEMATOCRIT 35.1 % (35.0-45.0); HEMOGLOBIN 11.4 g/dl (12.0-16.0); LYMPHOCYTES # (AUTO) 3.7 X10'3 (1.1-4.8); LYMPHOCYTES % (AUTO) 37.9 % (21-51); MEAN CORPUSCULAR HEMOGLOBIN 28.7 PG (27.0-31.0); MEAN CORPUSCULAR HGB CONC 32.6 g/dL (33.0-36.5); MEAN CORPUSCULAR VOLUME 88.1 FL (78-98); MEAN PLATELET VOLUME 8.5 FL (7.4-10.4); MONOCYTES # (AUTO) 0.9 X10'3 (0-0.9); MONOCYTES % (AUTO) 9.5 % (2-12); NEUTROPHILS # (AUTO) 4.9 X10'3 (1.8-7.7); NEUTROPHILS % (AUTO) 50.9 % (42-75); PLATELET COUNT 343 X10'3 (140-440); RED BLOOD COUNT 3.99 X10'6 (4.20-5.60); RED CELL DISTRIBUTION WIDTH 14.7 % (11.5-14.5); WHITE BLOOD COUNT 9.6 X10'3 (4.5-11.0)
[2023-02-04 16:48] LABS: APTT 26 SECONDS (22-32); INR 1.1 INR; PROTHROMBIN TIME 11.3 SECONDS (9.0-12.0)
[2023-02-04 16:52] LABS: ALBUMIN 3.9 G/DL (3.4-5.0); ANION GAP 5 (8-16); BLOOD UREA NITROGEN 25 MG/DL (7-18); BUN/CREATININE RATIO 20.5 (10.0-20.0); CALCIUM 9.2 MG/DL (8.5-10.1); CHLORIDE 103 MMOL/L (99-107); CREATININE 1.22 MG/DL (0.40-0.90); GLUCOSE 93 MG/DL (70-104); POTASSIUM 4.3 MMOL/L (3.5-5.1); SODIUM 137 MMOL/L (135-145); TOTAL CARBON DIOXIDE 28.6 MMOL/L (24-32); eGFR 45 ML/MIN
[~2023-02-08] VITALS: Ht 165.1 cm; Wt 91.6 kg
[2023-02-08] VITALS (7 sets, daily range): BP systolic 116–139; BP diastolic 55–73; PULSE 55–59; RESP 15–17; TEMP 98.4; O2SAT 94–97
[~2023-02-08 13:53] MED LIST changes: +LOSA-415 PO; -LOSA25TA96 PO; -cefazolin 2gm/D5W 100mL 100 ML IV ONE; -famotidine 20mg tablet PO ONE; -ringers solution, lacted 1,000 ML IV SCH; -tranexamic acid 650mg tablet PO ONE; -vancomycin 1,500 MG in NS 300ml IV soln IV ONE
[2023-02-08] MEDS ORDERED: ACET-1995 PO (14:17)
[2023-02-08] MEDS ORDERED: normal saline 1,000 ML IV SCH (14:25)
[2023-02-08] MEDS ORDERED: diphenhydrAMINE 25mg capsule PO PRN (14:25)
[2023-02-08] MEDS ORDERED: LORazepam 0.5 MG tablet PO PRN (14:25)
[2023-02-08] MEDS ORDERED: NITR0.4T48 SL (14:27)
[2023-02-08] MEDS ORDERED: midazolam 1 mg/ML 2ml injection ONE ×2 (15:45→16:37)
[2023-02-08] MEDS ORDERED: fentaNYL/PF 50MCG/1 ML 2ML syringe ONE (15:46)
[2023-02-08] MEDS ORDERED: iohexol 350MG/ML 100ml bottle IV ONE ×2 (15:46→16:38)
[2023-02-08] MEDS ORDERED: LIDOcaine 1% (10mg/ml)w/preservative inj. 20ml MDV ONE (15:46)
[2023-02-08] MEDS ORDERED: heparin 1,000 UNITS/NS 500ml 500 ML ONE ×2 (15:46→16:05)
[2023-02-08] MEDS ORDERED: heparin 1,000unit/ml 10ml vial 10 ML ONE (16:05)
[2023-02-08] MEDS ORDERED: clopidogrel 300mg tablet ONE (16:58)
== END 2023-02-08 19:15 | disposition home or self-care (01) ==
LOC: SSTAY O 13:53
PROVIDERS: ATTEND Student in an Organized Health Care Education/Training Program
DX: T82.856A Stenosis of peripheral vascular stent, initial encounter (principal); I70.213 Atherosclerosis of native arteries of extremities with intermittent claudication, bilateral legs; I25.10 Atherosclerotic heart disease of native coronary artery without angina pectoris; E78.5 Hyperlipidemia, unspecified; I65.29 Occlusion and stenosis of unspecified carotid artery; I35.0 Nonrheumatic aortic (valve) stenosis; J45.909 Unspecified asthma, uncomplicated; G47.33 Obstructive sleep apnea (adult) (pediatric); I95.9 Hypotension, unspecified; D64.9 Anemia, unspecified; G89.29 Other chronic pain; Z79.899 Other long term (current) drug therapy; Z95.5 Presence of coronary angioplasty implant and graft; F12.90 Cannabis use, unspecified, uncomplicated; Z88.5 Allergy status to narcotic agent; Z88.8 Allergy status to other drugs, medicaments and biological substances; Z86.19 Personal history of other infectious and parasitic diseases; Y83.8 Other surgical procedures as the cause of abnormal reaction of the patient, or of later complication, without mention of misadventure at the time of the procedure; Y92.89 Other specified places as the place of occurrence of the external cause
CPT/HCPCS: 36415; 75625; 75716; 80048; 85025; 85610; 85730; 93005; 99152; 99153; C1725; C1760; C1769; C1894; C9764; J1644; J2250; J3010; J3490; J7030; Q0163; Q9967; 37220; 96360; A6258; C9765

== ENCOUNTER 2025-02-18 08:15 | Emergency (ER) | payer MEDICAID ==
[~2025-02-18] VITALS: Ht 165.1 cm; Wt 97.6 kg
[~2025-02-18 08:15] MED LIST changes: +ACET-1995 PO; -ACET650T24 PO; +ARIP5TAB12 PO; -ARIP5TAB14 PO; -BACL20TA PO; +CITA-178 PO; -CITA20TA28 PO; -DIPH-1055 PO; +DIPH-1212 PO; +NITR0.4T48 SL; -ROSU40TA22 PO; +ROSU40TA89 PO
--- NOTE | 2025-02-18 09:13 | RADIOLOGY REPORT ---
CLINICAL INDICATION: ANKLE PAIN,RIGHT TECHNIQUE: 3 radiographic views of the right ankle were obtained. Comparison: None FINDINGS/IMPRESSION: There is no evidence of acute fracture or dislocation. Chronic deformity of the distal fibula. The visualized joint space is well maintained. The alignment is anatomical. There is no radiopaque foreign body.
--- NOTE | 2025-02-18 10:49 | VASCULAR REPORT ---
Right lower extremity venous duplex Clinical History: Pain, swelling in anterior right calf. Comparison: Radiographs right ankle performed same date. Findings: Duplex Doppler evaluation of the deep venous systems of the right lower extremity from the common femoral veins to the popliteal veins including color Doppler and spectral/pulsed waveform analysis was performed. RIGHT SIDE: The common femoral vein demonstrates appropriate compressibility and waveform variability. There is compressibility/patency of the great saphenous vein at the proximal thigh. The femoral vein demonstrates appropriate compressibility and waveform variability. The deep femoral vein demonstrates appropriate compressibility and waveform variability. The popliteal vein demonstrates appropriate compressibility and waveform variability. There is normal compressibility at the tibioperoneal trunk. LEFT SIDE: The common femoral vein demonstrates appropriate compressibility and waveform variability. Impression: 1. No right femoropopliteal venous thrombosis.
--- NOTE | 2025-02-18 11:01 | Physician Documentation ---
History of Present Illness ~ Chief Complaint: Leg Pain Stated Complaint: POSS BLOOD CLOT R LEG Time Seen by MD: 09:26 Primary Medical Doctor: DR YEH, DR MARSH HPI Patient is seen today with complaints for pain and swelling of her right leg couple of days ago. Patient states he has had swelling in her legs before but denies any previous history of DVT. Patient denies any shortness of breath or chest pain or abdominal pain or nausea, vomiting, diarrhea. She has no other concern or complaint at this time. Tetanus witin 5 years: Yes Medication Reconciliation Allergies: Coded Allergies: hydrocodone (Verified Allergy, Unknown, HIVES, 02/18/25) buprenorphine (Verified Adverse Reaction, Unknown, MENTAL ISSUES, 02/18/25) Scheduled Acetaminophen (Acetaminophen Extra Strength), 500 MG PO BID, (Reported) Aripiprazole* (Abilify*), 3 TAB PO HS, (Reported) Aspirin (Aspir 81), 1 TAB PO QPM, (Reported) Biotin (Biotin), 1 CAP PO DAILY, (Reported) Citalopram Hydrobromide* (Celexa*), 40 MG PO DAILY, (Reported) Diphenhydramine Hcl (Banophen), 25 MG PO QPM, (Reported) Fenofibrate,Micronized (Fenofibrate), 1 CAP PO DAILY, (Reported) Lactobacillus Combination No.4 (Probiotic), 1 CAP PO BID, (Reported) Losartan Potassium* (Cozaar*), 1 TAB PO HS, (Reported) Multivitamin (Multi Vitamin Daily), 1 TAB PO QPM, (Reported) [place]-3 Fatty Acids (Fish Oil), 3 CAP PO BID, (Reported) Pantoprazole Sodium (PROTONIX tablet), 40 MG PO BID, (Reported) Polyethylene Glycol 3350 (Miralax), 17 GM PO QPM, (Reported) Pregabalin (LYRICA capsule), 1 CAP PO QPM, (Reported) Rosuvastatin Calcium (Rosuvastatin Calcium), 1 TAB PO QPM, (Reported) Semaglutide (Ozempic), 1 MG SQ Q7D, (Reported) Scheduled PRN Albuterol Sulfate (Proair Hfa), 2 PUFFS INH Q4HPRN PRN for SOB or wheezing, (Reported) Fluticasone Propionate (Fluticasone Propionate), 1 SPRAYS BOTHNARES DAILY PRN for allergies, (Reported) Hydrocodone Bit/Acetaminophen 5/325 MG ([place] 5/325 MG), 0.5-1 TAB PO Q4-6 hours PRN for pain, (Reported) Nitroglycerin (Nitroglycerin), 1 TAB SL PRNCP PRN for chest pain, (Reported) Ondansetron Hcl (Zofran), 1 TAB PO Q8H PRN for nausea/vomiting, (Reported) Past Medical History Past Medical History: Coronary Artery Disease, Hypertension, Myocardial Infarction Past Surgical History: angioplasty, tubal ligation, other Alcohol Use: None Drug Use: none Lives with: Family Lives In: Home Occupation: disabled Review of Systems Constitutional: Denies: chills, fever, weakness Eyes: Denies: pain, blurred vision ENT: Denies: ear pain, nose pain, throat pain, mouth pain Respiratory: Denies: cough, shortness of breath Cardiovascular: Denies: chest pain, palpitations Gastrointestinal: Denies: abdominal pain, nausea, vomiting Genitourinary: Denies: burning, dysuria Female Genitalia: Denies: vaginal discharge, pelvic pain Neurological: Denies: headache, dizziness Musculoskeletal: Denies: pain, swelling Integumentary: Denies: rash, lesions Allergic/Immunologic: Denies: hives, itching Hematologic/Lymphatic: Denies: no symptoms reported Psychiatric: Denies: depression, anxiety Physical Exam Vital Signs: Temperature: 97.6, Source: Oral, Heart Rate: 68, Respiratory Rate: 18, BP: 164/76, Pulse Oximetry: 96, Weight: 97.600 Oxygen Flow Rate: 0 Physical Exam General: Awake and Alert, no acute distress. HEENT: Conjunctiva pink, Sclera clear, Mucus Membranes moist. Neck: Supple without masses and tenderness. Resp: Unlabored. Lungs clear to auscultation bilaterally. Heart: Regular Rate and rhythm, normal S1 and S2 without murmur, rub or gallop. Extremities: No cyanosis,clubbing, does have pitting edema bilaterally but much worse on the right side. Patient has tenderness to palpation of the anterior ochoa in the area of pitting edema without any significant redness or erythema or warmth or sign of cellulitis. Skin: Warm and Dry. Progress Results/Orders Results/Orders Orders - JAISON WERNER [facility] Venous (02/18/25 09:32) Completed Orders - JAISON WERNER PAC Venous (02/18/25 09:32) Vital Signs 02/18/25 08:31 Temp 97.6 Pulse 68 Resp 18 B/P (MAP) 164/76 Pulse Ox 96 O2 Flow Rate 0 EKG/XRAY/CT/US/VASC/MRI Ultrasound : Impression VASCULAR Patient: TOMAS SAMPSON Medical Record: [id number] [facility] : 1960, Age: 64 Sex: F Location: ER Patient Status: [facility] ER Service Date/Time: 02/18/25931 Ordering Physician: JAISON WERNER PAC Exam Name: VENOUS Technologist: Beatriz Blackwood Right lower extremity venous duplex Clinical History: Pain, swelling in anterior right calf. Comparison: Radiographs right ankle performed same date. Findings: Duplex Doppler evaluation of the deep venous systems of the right lower extremity from the common femoral veins to the popliteal veins including color Doppler and spectral/pulsed waveform analysis was performed. RIGHT SIDE: The common femoral vein demonstrates appropriate compressibility and waveform variability. There is compressibility/patency of the great saphenous vein at the proximal thigh. The femoral vein demonstrates appropriate compressibility and waveform variability. The deep femoral vein demonstrates appropriate compressibility and waveform variability. The popliteal vein demonstrates appropriate compressibility and waveform variability. There is normal compressibility at the tibioperoneal trunk. LEFT SIDE: The common femoral vein demonstrates appropriate compressibility and waveform variability. Impression: 1. No right femoropopliteal venous thrombosis. Dictated by:JOHNNY NEWELL MD Dictation date and time:02/18/251046 Electronically Signed by: JOHNNY NEWELL MD Date and Time: 02/18/251046 Transcribed: [facility] Transcribed: NO PRIMARY CARE PROVIDER~ cc: JAISON WERNER; JOHNNY NEWELL MD ~ Medical Decision Making Additional information obtaine: N/A Findings Patient is seen today with complaints for pain and swelling of her right leg couple of days ago. Patient states he has had swelling in her legs before but denies any previous history of DVT. Patient denies any shortness of breath or chest pain or abdominal pain or nausea, vomiting, diarrhea. She has no other concern or complaint at this time. Patient did have ultrasound of right lower extremity and left lower extremity that showed no sign of DVT. Patient will follow up with vascular surgeon or specialist for diagnostic ultrasound and possible vein ablation for treatment of chronic venous insufficiency. Patient will return to ED with any worsening, concerning or changing symptoms. General Diff Dx:Considerations: Unlikely: Abrasion, Contusion, Fracture, Hematoma, Laceration, Malunion, Neurovascular injury, Open fracture, Sprain, Ulcer, Other Knee Diff Dx:Considerations: Unlikely: Abrasion, Arthritis, Contusion, DJD, Fracture-femur, Fracture-fibula, Fracture-patella, Fracture-tibia, Gout, Hematoma, Laceration, Meniscus injury, Neurovascular injury, Open fracture, Rheumatoid arthritis, Septic, Sprain, Sprain-MCL, Sprain-LCL, Sprain-ACL, Sprain-PCL, Other Ankle Diff Dx:Considerations: Unlikely: Abrasion, Arthritis, Contusion, DJD, Fracture-metatarsal, Fracture-fibula, Fracture-tarsal, Fracture-tibia, Gout, Hematoma, Laceration, Malunion, Neurovascular injury, Nonunion, Open fracture, Osteomyelitis, Rheumatoid arthritis, Sprain, Septic, Ulcer, Other Foot Diff Dx:Considerations: Include: Abrasion, Arthritis, Cellulitis, Contusion Toe Diff Dx:Considerations: Unlikely: Abrasion, Cellulitis, Contusion, Dislocation, Felon, Fracture, Hematoma, Laceration, Neurovascular injury, Open fracture, Paronychia, Subungual hematoma, Other Additional Comment DVT Departure Impression: Primary Impression: Chronic venous insufficiency of lower extremity Condition: Stable Discharge Instructions: Chronic Venous Insufficiency Additional Instructions: Patient did have ultrasound of right lower extremity and left lower extremity that showed no sign of DVT. Patient will follow up with vascular surgeon or specialist for diagnostic ultrasound and possible vein ablation for treatment of chronic venous insufficiency. Patient will return to ED with any worsening, concerning or changing symptoms. Referrals: NO PRIMARY CARE PROVIDER (PCP) Prescriptions Furosemide (LASIX) 40 Mg Tablet 1 TAB PO DAILY for 15 Days, #15 TAB 0 Refills Prov: JAISON WERNER 02/18/25 Signature Scribe Signature: No scribe Attestation: No scribe JAISON WERNER Feb 18, 2025 11:01
[2025-02-18] MEDS ORDERED: FURO-149 PO (11:09)
[2025-02-18 11:15] VITALS: BP 134/87; PULSE 88; RESP 16; TEMP 98.6; O2SAT 99
== END 2025-02-18 11:18 | disposition home or self-care (01) ==
LOC: ER 08:15
DX: I87.2 Venous insufficiency (chronic) (peripheral) (principal); I25.10 Atherosclerotic heart disease of native coronary artery without angina pectoris; I10 Essential (primary) hypertension; I25.2 Old myocardial infarction; Z88.5 Allergy status to narcotic agent; Z98.51 Tubal ligation status; Z79.82 Long term (current) use of aspirin; Z79.899 Other long term (current) drug therapy
CPT/HCPCS: 73610; 93971; 99284

== ENCOUNTER 2025-02-18 19:45 | Emergency (ER) | payer MEDICAID ==
[~2025-02-18] VITALS: Ht 165.1 cm; Wt 97.2 kg
[~2025-02-18 19:45] MED LIST changes: +FURO-149 PO
[2025-02-18] MEDS: oxyCODONE IR 5mg (immed. release) tablet PO ONE (20:25)
--- NOTE | 2025-02-18 20:40 | Physician Documentation ---
History of Present Illness ~ Chief Complaint: Mechanical Fall Stated Complaint: FALL Time Seen by MD: 20:03 Primary Medical Doctor: DR MAXIMO EDMONDS HPI 64-year-old right-hand dominant female who presents to the emergency department for evaluation of left shoulder injury with abrasion to her chin status post mechanical fall with take out the trash. There was no loss consciousness. Reports that she fell on an outstretched hand. She has no pain and reduced range of motion to the wrist or pain and reduced range of motion to the left elbow. No gross deformity she is grossly neurologically intact radial median ulnar nerve. Tetanus within 5 Years?: Yes Medication Reconciliation Allergies: Coded Allergies: hydrocodone (Verified Allergy, Unknown, HIVES, 02/18/25) buprenorphine (Verified Adverse Reaction, Unknown, MENTAL ISSUES, 02/18/25) Scheduled Acetaminophen (Acetaminophen Extra Strength), 500 MG PO BID, (Reported) Aripiprazole* (Abilify*), 3 TAB PO HS, (Reported) Aspirin (Aspir 81), 1 TAB PO QPM, (Reported) Biotin (Biotin), 1 CAP PO DAILY, (Reported) Citalopram Hydrobromide* (Celexa*), 40 MG PO DAILY, (Reported) Diphenhydramine Hcl (Banophen), 25 MG PO QPM, (Reported) Fenofibrate,Micronized (Fenofibrate), 1 CAP PO DAILY, (Reported) Furosemide (Lasix), 1 TAB PO DAILY Lactobacillus Combination No.4 (Probiotic), 1 CAP PO BID, (Reported) Losartan Potassium* (Cozaar*), 1 TAB PO HS, (Reported) Multivitamin (Multi Vitamin Daily), 1 TAB PO QPM, (Reported) [place]-3 Fatty Acids (Fish Oil), 3 CAP PO BID, (Reported) Pantoprazole Sodium (PROTONIX tablet), 40 MG PO BID, (Reported) Polyethylene Glycol 3350 (Miralax), 17 GM PO QPM, (Reported) Pregabalin (LYRICA capsule), 1 CAP PO QPM, (Reported) Rosuvastatin Calcium (Rosuvastatin Calcium), 1 TAB PO QPM, (Reported) Semaglutide (Ozempic), 1 MG SQ Q7D, (Reported) Scheduled PRN Albuterol Sulfate (Proair Hfa), 2 PUFFS INH Q4HPRN PRN for SOB or wheezing, (Reported) Fluticasone Propionate (Fluticasone Propionate), 1 SPRAYS BOTHNARES DAILY PRN for allergies, (Reported) Hydrocodone Bit/Acetaminophen 5/325 MG ([place] 5/325 MG), 0.5-1 TAB PO Q4-6 hours PRN for pain, (Reported) Nitroglycerin (Nitroglycerin), 1 TAB SL PRNCP PRN for chest pain, (Reported) Ondansetron Hcl (Zofran), 1 TAB PO Q8H PRN for nausea/vomiting, (Reported) Past Medical History Past Medical History: Coronary Artery Disease, Hypertension, Myocardial Infarction Past Surgical History: angioplasty, tubal ligation, other Alcohol Use: None Drug Use: none Lives with: Family Lives In: Home Occupation: disabled Review of Systems All Other Systems at this time: Reviewed and Negative Musculoskeletal: Reports: joint pain, joint swelling Physical Exam Vital Signs: RN Vital Signs have been reviewed: Yes, Temperature: 97.8, Source: Temporal, Heart Rate: 76, Respiratory Rate: 18, BP: 198/95, Pulse Oximetry: 98, Weight: 97.200 Oxygen Flow Rate: 0 General Appearance: alert, WD/WN, moderate distress Head: no evidence of injury Face: abrasion (Small abrasion to the chin) Pupils/EOM/Fundus: PERRLA Nose: abrasion Neck: non-tender Respiratory: no respiratory distress Chest: non-tender Cardiovascular: normal peripheral pulses Back: normal inspection Extremities Swelling and tenderness to the left shoulder. Grossly neurologically intact the distal extremity. No reduced range of motion of or reproducible pain to the elbow or wrist. Skin: warm/dry Neurologic: oriented x4 Motor / Sensory: no motor deficit, no sensory deficit Thoughts/Hallucinations: normal thought pattern Procedures Splinting Pre-Made Type: Shoulder Hand-Made Type: Fabric Splint: Shoulder immobilizer Pre-Proc Neuro Vasc Exam: normal Post-Proc Neuro Vasc Exam: normal Splint Placed By: Nurse Tolerated Procedure Well?: yes, no complications Procedure Note Left shoulder secured with shoulder immobilizer. Remains grossly neurologically intact. Progress Results/Orders Results/Orders Orders - AVINASH EARL Shoulder, Complete (Min 2 Vws) (02/18/25 20:29) Ortho Orders (02/18/25 20:40) Completed Orders - MADY,AVINASH C PAC Shoulder, Complete (Min 2 Vws) (02/18/25 20:29) Oxycodone Immed Release Tablet (Oxy Ir T (02/18/25 20:15) Medications Received in ER Medications (Trade) Dose Ordered Sig/Loretta Route PRN Reason Start Time Stop Time Status Last Admin Dose Admin (OXY IR tablet) 5 mg ONCE ONCE PO 02/18/25 20:15 02/18/25 20:19 DC 02/18/25 20:25 5 MG Vital Signs 02/18/25 19:48 Temp 97.8 Pulse 76 Resp 18 B/P (MAP) 198/95 Pulse Ox 98 O2 Flow Rate 0 Medical Decision Making Additional information obtaine: family Findings 64-year-old female who is right-hand dominant examination history and diagnostic imaging consistent with nondisplaced humeral head fracture. X-ray imaging interpreted myself shows no dislocation nondisplaced fracture without bony lesions. Patient will be placed in shoulder immobilizer and with recommendations to follow up with the orthopedist for different neck fracture management. She remains grossly neurologically intact. Pain management provided the patient in the emergency department. Differential Dx:Considerations: Include: Other (Working diagnosis of acute fracture, less likely differential is that of pathological fracture tumor secondary bony lesion.) Departure Disposition: HOME / SELF CARE / HOMELESS Impression: Primary Impression: Closed fracture of head of left humerus Qualified Codes: S42.292A - Other displaced fracture of upper end of left humerus, initial encounter for closed fracture Condition: Stable Discharge Instructions: Humerus Fracture Treated With Immobilization Additional Instructions: Your x-ray imaging is consistent with a fracture requiring orthopedic follow up in 3-5 days. Please wear shoulder immobilizer for comfort and support. Take your pain medicine as directed. Thank you for visiting emergency department [facility]. Referrals: NO PRIMARY CARE PROVIDER (PCP) TOMÁS QUINONES Jr., MD 2-4 days 64-year-old female right-hand dominant with left closed humeral head fracture. Please evaluate and treat. Thank you from [facility] Emergency Department. Education Educated: Patient, Family Educated regarding: diagnosis, treatment, prognosis, need for follow up Signature Scribe Signature: . Attestation: . AVINASH EARL PAC Feb 18, 2025 20:40
[2025-02-18 20:57] VITALS: BP 178/85; PULSE 72; RESP 18; TEMP 98.6; O2SAT 99
--- NOTE | 2025-02-18 21:05 | RADIOLOGY REPORT ---
EXAM: DI SHOULDER, COMPLETE (MIN 2 VWS) INDICATION: FALL, LEFT TECHNIQUE: 2 views of the left shoulder COMPARISON: None FINDINGS/IMPRESSION: Comminuted fracture of the proximal humeral surgical neck without significant displacement. Chondrocalcinosis of the superior rotator cuff.
== END 2025-02-18 20:59 | disposition home or self-care (01) ==
LOC: ER 19:46
DX: S42.292A Other displaced fracture of upper end of left humerus, initial encounter for closed fracture (principal); I25.2 Old myocardial infarction; I25.10 Atherosclerotic heart disease of native coronary artery without angina pectoris; I10 Essential (primary) hypertension; Z88.5 Allergy status to narcotic agent; Z98.51 Tubal ligation status; Z79.899 Other long term (current) drug therapy; Z79.82 Long term (current) use of aspirin; W18.39XA Other fall on same level, initial encounter; Y93.89 Activity, other specified; Y92.89 Other specified places as the place of occurrence of the external cause; Y99.8 Other external cause status
CPT/HCPCS: 29105; 73030; 99283; A4565